=== PATIENT | male | born 1985 | race Caucasian/White ===

== ENCOUNTER 2024-01-17 14:28 | Emergency (ER) | payer MEDICAID ==
[~2024-01-17] VITALS: Ht 177.8 cm; Wt 74.8 kg
[2024-01-17 14:39] VITALS: BP 132/73; PULSE 115; RESP 19; TEMP 98.7; O2SAT 99
[2024-01-17] MEDS: cephALEXin 500 MG CAP PO ONE (15:44)
[2024-01-17] MEDS ORDERED: BACI-418 TP (15:50)
[2024-01-17] MEDS ORDERED: CEPH-588 PO (15:50)
[2024-01-17] MEDS: BACITRACIN OINT 500 UNITS/GM PKT TP ONE (16:06)
== END 2024-01-17 16:32 | disposition home or self-care (01) ==
LOC: MED 14:28
DX: L03.011 Cellulitis of right finger (principal); Z48.02 Encounter for removal of sutures; Z79.899 Other long term (current) drug therapy; Z88.0 Allergy status to penicillin; Z88.1 Allergy status to other antibiotic agents
CPT/HCPCS: 99283

== ENCOUNTER 2024-02-01 04:05 | Emergency (ER) | payer MEDICAID ==
[~2024-02-01] VITALS: Ht 177.8 cm; Wt 76.2 kg
[~2024-02-01 04:05] MED LIST: BACI-418 TP; CEPH-588 PO
[2024-02-01 04:10] VITALS: BP 131/76; PULSE 105; RESP 19; TEMP 97.8; O2SAT 96
[2024-02-01 04:45] VITALS: O2SAT 98
[2024-02-01] MEDS ORDERED: AZITHROMYCIN 500 MG in DEXTROSE 5% 250 ML IV ONE (04:55)
[2024-02-01] MEDS ORDERED: LIDOCAINE MPF 1% 5 ML ONE (05:10)
[2024-02-01] MEDS ORDERED: cefTRIAXone 1,000 MG VIAL ONE (05:10)
[2024-02-01] MEDS: cefTRIAXone 1,000 MG in LIDOCAINE MPF 1% 2.1 ML IM ONE (05:18)
[2024-02-01] MEDS: AZITHROMYCIN 250 MG TAB PO ONE (05:23)
[2024-02-01] MEDS ORDERED: DOXY-487 PO (05:37)
== END 2024-02-01 05:40 | disposition home or self-care (01) ==
LOC: MED 04:05
DX: R36.9 Urethral discharge, unspecified (principal); Z20.2 Contact with and (suspected) exposure to infections with a predominantly sexual mode of transmission; Z79.899 Other long term (current) drug therapy; Z88.0 Allergy status to penicillin; Z88.1 Allergy status to other antibiotic agents
CPT/HCPCS: 81002; 96372; 99283; J0696; J2001